=== PATIENT | male | born 1990 | race African-American/Black ===

== ENCOUNTER 2022-05-20 21:16 | Emergency (ER) | payer BC ==
[2022-05-20 21:21] VITALS: BP 159/69; PULSE 78; RESP 18; TEMP 98; BMI 31.1
== END 2022-05-20 23:03 | disposition home or self-care (01) ==
LOC: JER 21:16 → JERFT 21:16
PROC: 3E023GC Introduction of Other Therapeutic Substance into Muscle, Percutaneous Approach (ICD-10-PCS; principal; 2022-05-20)
DX: R36.9 Urethral discharge, unspecified (principal); Z20.2 Contact with and (suspected) exposure to infections with a predominantly sexual mode of transmission
CPT/HCPCS: 0241U-QW; 36415; 87491; 87591; 99284-25